=== PATIENT | female | born 1940 | race Caucasian/White ===

== ENCOUNTER 2020-10-06 15:29 | Inpatient (IN) | payer MEDICARE ==
[~2020-10-06 15:29] MED LIST: Bacitracin Zinc Ointment 30 gm TUBE ONE; Dexmedetomidine 200 MCG/2 ML VIAL ONE; Fentanyl 100 MCG/2 ML VIAL ONE; Lidocaine 0.5%/Epinephrine 1:200,000 50 ml Vial ONE; Thrombin 5000 UNITS/5 ML VIAL ONE; levETIRAcetam 1000 MG/100 ML PREMIX BAG ONE
[2020-10-06] MEDS ORDERED: Rocuronium Bromide 10 MG/ML (10ML VIAL) ONE (15:40)
[2020-10-06] MEDS ORDERED: PHENYLEPHRINE-NS 100 MCG/ML 10 ML SYRINGE ONE (15:40)
[2020-10-06] MEDS ORDERED: Metoprolol Tartrate 5 MG/5 ML VIAL IVP PRN (18:02)
[2020-10-06 18:34] VITALS: BMI 32.5
[2020-10-06] MEDS: niCARdipine 25 MG in Sodium Chloride 0.9% 250 ML 240 ML IVPB SCH (18:45)
[2020-10-06] MEDS ORDERED: Propofol 1,000 MG/100 ML VIAL IV ONE (20:30)
[2020-10-06] MEDS: Fentanyl 100 MCG/2 ML VIAL SLOW IVP PRN (21:04)
[2020-10-06] MEDS: levETIRAcetam in NS 500 MG in Premix Bag 1 BAG IVPB SCH (21:50)
[2020-10-06] MEDS: Sodium Chloride 0.9% 1,000 ML IV SCH (23:16)
[2020-10-06] MEDS: CEFAZOLIN 2 GM in Premix Bag 1 BAG IVPB SCH (23:17)
[2020-10-07] MEDS: niCARdipine 25 MG in Sodium Chloride 0.9% 250 ML 240 ML IVPB SCH (00:22)
[2020-10-07] MEDS: Fentanyl 100 MCG/2 ML VIAL SLOW IVP PRN ×2 (00:32→02:45)
[2020-10-07 03:33] LABS: #Lymphocytes 0.7 thou/uL (1.20-3.40); #Monocytes 0.2 thou/uL (0.11-0.59); %Eosinophils 0.2 % (0.0-10.0); %Lymphocytes 4.9 % (21.0-51.0); %Monocytes 1.6 % (0.0-10.0); %Neutrophils 93.3 % (42.0-75.0); Hemoglobin 12.8 g/dL (12.0-16.0); Mean Corpuscular HGB CONC 33.3 g/dL (32.0-36.0); Mean Corpuscular Hemoglobin 30.6 pg (27.0-31.0); Mean Corpuscular Volume 91.8 fL (78.0-98.0); Mean Platelet Volume 8.3 fL (7.4-10.4); Platelet Count 159 thou/uL (130-400); RBC Distribution Width 12.7 % (11.5-14.5); Red Blood Cell (RBC) Count 4.18 mill/uL (4.20-5.40); White Blood Cell (WBC) Count 13.9 thou/uL (4.8-10.8)
[2020-10-07 03:36] LABS: INR-International Normal Ratio 1.2; PTT 26.1 sec (22.9-36.1)
[2020-10-07 04:07] LABS: Anion Gap 14 mmol/L (10-20); Carbon Dioxide 21 mmol/L (23-31); Chloride 107 mmol/L (98-107); Potassium 3.5 mmol/L (3.5-5.1); Sodium 138 mmol/L (136-145)
[2020-10-07] MEDS: Propofol 1,000 MG/100 ML VIAL IV PRN ×3 (04:34→21:28)
[2020-10-07] MEDS: hydrALAZINE 20 MG/ML VIAL SLOW IVP PRN (05:16)
[2020-10-07] MEDS: Acetaminophen 500 MG TAB PO PRN ×2 (05:18→14:33)
[2020-10-07 07:13] LABS: Base Excess (BEa) -1.3 mEq/L (-2.0 to +3.0); CO2 Tension 32.8 mmHg (35.0-45.0); Carboxyhemoglobin (COHb) 0.2 gm% (0.0-3.0); Hemoglobin (Hb) 12.9 g/dL (12.0-16.0); O2 Tension (PaO2), arterial 92.8 mmHg (> 60.0); Potassium - ABG Lab 3.39 mmol/L (3.70-5.30); pH, Arterial 7.45 (7.35-7.45)
[2020-10-07 07:21] LABS: Puncture Site RRA
[2020-10-07] MEDS: niCARdipine 50 MG in Sodium Chloride 0.9% 250 ML 230 ML IVPB SCH ×2 (08:57→14:33)
[2020-10-07] MEDS: CEFAZOLIN 2 GM in Premix Bag 1 BAG IVPB SCH ×2 (08:57→15:08)
[2020-10-07] MEDS: Losartan 25 MG TAB PO SCH (08:58)
[2020-10-07] MEDS: Pantoprazole 40 MG VIAL IVP SCH (08:58)
[2020-10-07] MEDS: levETIRAcetam in NS 500 MG in Premix Bag 1 BAG IVPB SCH ×2 (08:58→21:44)
[2020-10-07] MEDS: Metoprolol Tartrate 50 MG TAB PO SCH ×2 (08:58→21:12)
[2020-10-07] MEDS: Sodium Chloride 0.9% 1,000 ML IV SCH (13:26)
[2020-10-07] MEDS ORDERED: Magnesium 2 GM/50 ML 2 GM in Premix Bag 1 BAG IVPB SCH ×2 (15:00→21:00)
[2020-10-07] MEDS ORDERED: Nitroglycerin 0.4 MG TAB (25 Tab Bottle) SL PRN (15:29)
[2020-10-07] MEDS ORDERED: Potassium Chloride 20 MEQ/100 ML PREMIX BAG IVPB SCH ×2 (15:30→21:00)
[2020-10-07] MEDS ORDERED: Electrolyte Replacement Protocol 1 EACH FS SCH (16:00)
[2020-10-07 16:56] LABS: Bilirubin Negative (Negative); Blood, Urine Negative (Negative); Clarity Clear (Clear); Glucose, Urine (Dipstick) Normal (Negative); Ketone, Urine Negative (Negative); Leukocyte Negative Leu/uL (Negative); Nitrite Negative (Negative); Protein, Urine (Dipstick) Negative (Neg-Trace); RBC/HPF 0-3 HPF (0-3); Specific Gravity, Urine 1.023 (1.002-1.036); Squamous Epithelial None Seen HPF (0-3); Urobilinogen Normal mg/dL (Less than 2); pH, Urine 5.5 (5.0-9.0)
[2020-10-07 16:58] LABS: Bacteria/HPF 1+ HPF (None Seen); Urine Culture Reflex Yes Yes
[2020-10-07 16:59] LABS: Phosphorus 3.5 mg/dL (2.3-4.7)
[2020-10-07] MEDS ORDERED: Potassium Bicarbonate/Cit Ac 20 MEQ TAB PER TUBE SCH (17:00)
[2020-10-07 17:02] LABS: Magnesium 1.8 mg/dL (1.6-2.6)
[2020-10-07] MEDS ORDERED: Potassium Chloride 20 MEQ in Premix Bag 1 BAG IVPB SCH (17:15)
[2020-10-07] MEDS ORDERED: Electrolyte Replacement Protocol FS PRN (17:15)
[2020-10-07] MEDS: VANCOMYCIN 1.25 GM/250 ML BAG 1.25 GM in Premix Bag 1 BAG IVPB SCH (17:58)
[2020-10-07] MEDS ORDERED: Acetaminophen 650 MG Suppository PR PRN (19:48)
[2020-10-07] MEDS ORDERED: Bisacodyl 10 MG SUPP PR PRN (19:48)
[2020-10-07] MEDS ORDERED: Acetaminophen 325 MG TAB PO PRN (19:48)
[2020-10-07] MEDS: MEROPENEM 1 GM/50 ML 1 GM in Premix Bag 1 BAG IVPB SCH (21:09)
[2020-10-07] MEDS: Artificial Tear Sol 15 ML BOT EA EYE SCH (21:11)
[2020-10-08] MEDS: niCARdipine 50 MG in Sodium Chloride 0.9% 250 ML 230 ML IVPB SCH ×2 (00:42→08:30)
[2020-10-08] MEDS: MEROPENEM 1 GM/50 ML 1 GM in Premix Bag 1 BAG IVPB SCH (04:16)
[2020-10-08] MEDS: Propofol 1,000 MG/100 ML VIAL IV PRN ×2 (04:17→17:16)
[2020-10-08 04:24] LABS: Hemoglobin 11.4 g/dL (12.0-16.0); Mean Corpuscular HGB CONC 32.2 g/dL (32.0-36.0); Mean Corpuscular Hemoglobin 29.9 pg (27.0-31.0); Mean Platelet Volume 8.4 fL (7.4-10.4); Platelet Count 171 thou/uL (130-400); Red Blood Cell (RBC) Count 3.82 mill/uL (4.20-5.40); White Blood Cell (WBC) Count 21.7 thou/uL (4.8-10.8)
[2020-10-08 04:27] LABS: Anion Gap 11 mmol/L (10-20); BUN (Urea Nitrogen) 18 mg/dL (9.8-20.1); Calc. Creatinine Clearance 84 mL/min (70-130); Calcium 7.9 mg/dL (7.8-10.44); Carbon Dioxide 21 mmol/L (23-31); Chloride 109 mmol/L (98-107); Glucose 142 mg/dL (83-110); Potassium 3.9 mmol/L (3.5-5.1); Sodium 137 mmol/L (136-145)
[2020-10-08 04:32] LABS: CRP (Inflammatory) 1.66 mg/dL (= or < 0.5); Magnesium 2.8 mg/dL (1.6-2.6)
[2020-10-08 04:50] LABS: Band 4 % (5-11); Lymphocytes 6 % (21-51); MDiff Complete? YES; Monocytes 7 % (0-10); Neutrophil 83 % (42-75)
[2020-10-08 06:59] LABS: Actual Bicarbonate (HCO3a) 21.3 mEq/L (22-28); Base Excess (BEa) -2.2 mEq/L (-2.0 to +3.0); CO2 Tension 32.4 mmHg (35.0-45.0); Calcium, Ionized (arterial) 1.13 mmol/L (1.12-1.30); Carboxyhemoglobin (COHb) 0.3 gm% (0.0-3.0); Hemoglobin (Hb) 12.1 g/dL (12.0-16.0); O2 Tension (PaO2), arterial 111.7 mmHg (> 60.0); Potassium - ABG Lab 4.11 mmol/L (3.70-5.30); pH, Arterial 7.44 (7.35-7.45)
[2020-10-08 07:01] LABS: Puncture Site Arterial Line
[2020-10-08] MEDS: Sodium Chloride 0.9% 1,000 ML IV SCH ×2 (07:11→15:15)
[2020-10-08] MEDS: Metoprolol Tartrate 50 MG TAB PO SCH ×2 (08:16→20:01)
[2020-10-08] MEDS: Pantoprazole 40 MG VIAL IVP SCH (08:16)
[2020-10-08] MEDS: levETIRAcetam in NS 500 MG in Premix Bag 1 BAG IVPB SCH ×2 (08:17→20:32)
[2020-10-08] MEDS: Losartan 25 MG TAB PO SCH (08:17)
[2020-10-08] MEDS: Artificial Tear Sol 15 ML BOT EA EYE SCH ×4 (08:18→20:31)
[2020-10-08] MEDS: Cefepime 1 GM in Sodium Chloride 0.9% 100 ML IVPB SCH ×2 (10:37→20:01)
[2020-10-08] MEDS: Acetaminophen 500 MG TAB PO PRN (11:35)
[2020-10-08] MEDS: Dexamethasone 4 mg/ml Vial SLOW IVP SCH ×2 (11:35→17:18)
[2020-10-08] MEDS: hydrALAZINE 20 MG/ML VIAL SLOW IVP PRN (13:17)
[2020-10-08] MEDS: VANCOMYCIN 1.25 GM/250 ML BAG 1.25 GM in Premix Bag 1 BAG IVPB SCH (18:34)
[2020-10-08] MEDS: Ipratropium Bromide 2.5 ml Neb NEB SCH (19:15)
[2020-10-08] MEDS: cloNIDine 0.2 MG TAB PO SCH (20:04)
[2020-10-08] MEDS: Fentanyl 100 MCG/2 ML VIAL SLOW IVP PRN ×2 (21:35→22:10)
[2020-10-09] MEDS: Dexamethasone 4 mg/ml Vial SLOW IVP SCH ×5 (00:30→23:19)
[2020-10-09] MEDS: Fentanyl 100 MCG/2 ML VIAL SLOW IVP PRN ×2 (00:35→23:30)
[2020-10-09] MEDS: Ipratropium Bromide 2.5 ml Neb NEB SCH ×4 (00:41→18:33)
[2020-10-09] MEDS: Propofol 1,000 MG/100 ML VIAL IV PRN ×3 (01:07→22:30)
[2020-10-09] MEDS: niCARdipine 50 MG in Sodium Chloride 0.9% 250 ML 230 ML IVPB SCH (06:28)
[2020-10-09 07:48] LABS: Hemoglobin 12.1 g/dL (12.0-16.0); Mean Corpuscular HGB CONC 33.2 g/dL (32.0-36.0); Mean Corpuscular Volume 93.5 fL (78.0-98.0); Mean Platelet Volume 8.3 fL (7.4-10.4); Platelet Count 154 thou/uL (130-400); RBC Distribution Width 12.8 % (11.5-14.5); Red Blood Cell (RBC) Count 3.91 mill/uL (4.20-5.40); White Blood Cell (WBC) Count 14.2 thou/uL (4.8-10.8)
[2020-10-09] MEDS: Sodium Chloride 0.9% 1,000 ML IV SCH ×2 (07:56→16:31)
[2020-10-09 08:04] LABS: Anion Gap 9 mmol/L (10-20); BUN (Urea Nitrogen) 21 mg/dL (9.8-20.1); Calc. Creatinine Clearance 92 mL/min (70-130); Calcium 8.3 mg/dL (7.8-10.44); Carbon Dioxide 25 mmol/L (23-31); Chloride 111 mmol/L (98-107); Glucose 141 mg/dL (83-110); Magnesium 2.4 mg/dL (1.6-2.6); Phosphorus 2.7 mg/dL (2.3-4.7); Potassium 4.1 mmol/L (3.5-5.1); Sodium 141 mmol/L (136-145)
[2020-10-09] MEDS: cloNIDine 0.2 MG TAB PO SCH ×2 (08:11→21:07)
[2020-10-09] MEDS: Losartan 25 MG TAB PO SCH (08:11)
[2020-10-09] MEDS: Metoprolol Tartrate 50 MG TAB PO SCH ×2 (08:11→21:07)
[2020-10-09] MEDS: Pantoprazole 40 MG VIAL IVP SCH (08:11)
[2020-10-09] MEDS: Artificial Tear Sol 15 ML BOT EA EYE SCH ×4 (08:12→21:07)
[2020-10-09] MEDS: Cefepime 1 GM in Sodium Chloride 0.9% 100 ML IVPB SCH ×2 (08:12→21:07)
[2020-10-09] MEDS: levETIRAcetam in NS 500 MG in Premix Bag 1 BAG IVPB SCH ×2 (08:12→21:07)
[2020-10-09 08:23] LABS: Band 1 % (5-11); Lymphocytes 11 % (21-51); MDiff Complete? YES; Neutrophil 88 % (42-75); RBC Morphology Normal
[2020-10-09] MEDS ORDERED: Magnevist 469MG/ML 20 ML VIAL ONE (14:57)
[2020-10-09] MEDS ORDERED: Iopamidol 370 76% 100 ML VIAL ONE (14:57)
[2020-10-09] MEDS: VANCOMYCIN 1.25 GM/250 ML BAG 1.25 GM in Premix Bag 1 BAG IVPB SCH (17:15)
[2020-10-09 17:35] LABS: Vancomycin, Trough 6.8 ug/mL
[2020-10-10] MEDS: Ipratropium Bromide 2.5 ml Neb NEB SCH ×4 (02:19→18:55)
[2020-10-10] MEDS: Dexamethasone 4 mg/ml Vial SLOW IVP SCH ×2 (05:28→09:58)
[2020-10-10 06:36] LABS: Anion Gap 12 mmol/L (10-20); BUN (Urea Nitrogen) 23 mg/dL (9.8-20.1); Calc. Creatinine Clearance 104 mL/min (70-130); Calcium 8.1 mg/dL (7.8-10.44); Carbon Dioxide 18 mmol/L (23-31); Chloride 114 mmol/L (98-107); Glucose 136 mg/dL (83-110); Potassium 4.5 mmol/L (3.5-5.1); Sodium 139 mmol/L (136-145)
[2020-10-10 06:58] LABS: #Lymphocytes 0.8 thou/uL (1.20-3.40); #Monocytes 0.4 thou/uL (0.11-0.59); #Neutrophils 13.6 thou/uL (1.40-6.50); %Lymphocytes 5.3 % (21.0-51.0); %Monocytes 2.5 % (0.0-10.0); %Neutrophils 92.1 % (42.0-75.0); Hemoglobin 12.1 g/dL (12.0-16.0); Mean Corpuscular HGB CONC 32.8 g/dL (32.0-36.0); Mean Corpuscular Hemoglobin 30.6 pg (27.0-31.0); Mean Corpuscular Volume 93.3 fL (78.0-98.0); Mean Platelet Volume 8.4 fL (7.4-10.4); Platelet Count 158 thou/uL (130-400); RBC Distribution Width 12.8 % (11.5-14.5); Red Blood Cell (RBC) Count 3.96 mill/uL (4.20-5.40); White Blood Cell (WBC) Count 14.7 thou/uL (4.8-10.8)
[2020-10-10] MEDS: Sodium Chloride 0.9% 1,000 ML IV SCH ×2 (07:00→20:07)
[2020-10-10] MEDS: Propofol 1,000 MG/100 ML VIAL IV PRN ×2 (07:04→14:48)
[2020-10-10] MEDS: cloNIDine 0.2 MG TAB PO SCH ×2 (08:27→20:11)
[2020-10-10] MEDS: Metoprolol Tartrate 50 MG TAB PO SCH ×2 (08:27→20:11)
[2020-10-10] MEDS: Pantoprazole 40 MG VIAL IVP SCH (08:27)
[2020-10-10] MEDS: Cefepime 1 GM in Sodium Chloride 0.9% 100 ML IVPB SCH ×2 (08:27→20:09)
[2020-10-10] MEDS: Losartan 25 MG TAB PO SCH (08:27)
[2020-10-10] MEDS: Artificial Tear Sol 15 ML BOT EA EYE SCH ×4 (08:28→20:13)
[2020-10-10] MEDS: levETIRAcetam in NS 500 MG in Premix Bag 1 BAG IVPB SCH ×2 (08:28→20:09)
[2020-10-10] MEDS ORDERED: Vancomycin 1.5 GRAM/300 ML BAG 1.5 GM in Premix Bag 1 BAG IVPB SCH (10:00)
[2020-10-10] MEDS ORDERED: Dexamethasone 4 mg/ml Vial ONE (20:02)
[2020-10-11] MEDS: Ipratropium Bromide 2.5 ml Neb NEB SCH ×5 (00:24→23:21)
[2020-10-11] MEDS: Dexamethasone 4 mg/ml Vial SLOW IVP SCH ×3 (00:47→20:22)
[2020-10-11 04:02] LABS: Anion Gap 12 mmol/L (10-20); BUN (Urea Nitrogen) 26 mg/dL (9.8-20.1); Calc. Creatinine Clearance 108 mL/min (70-130); Calcium 7.7 mg/dL (7.8-10.44); Carbon Dioxide 20 mmol/L (23-31); Chloride 110 mmol/L (98-107); Glucose 141 mg/dL (83-110); Potassium 3.7 mmol/L (3.5-5.1); Sodium 138 mmol/L (136-145)
[2020-10-11] MEDS: Propofol 1,000 MG/100 ML VIAL IV PRN ×3 (04:26→17:24)
[2020-10-11 05:28] LABS: #Lymphocytes 0.8 thou/uL (1.20-3.40); #Monocytes 0.3 thou/uL (0.11-0.59); %Eosinophils 0.3 % (0.0-10.0); %Lymphocytes 8.3 % (21.0-51.0); %Monocytes 3.3 % (0.0-10.0); %Neutrophils 88.1 % (42.0-75.0); Hemoglobin 11.3 g/dL (12.0-16.0); Mean Corpuscular HGB CONC 33.6 g/dL (32.0-36.0); Mean Corpuscular Hemoglobin 31.2 pg (27.0-31.0); Mean Corpuscular Volume 92.8 fL (78.0-98.0); Mean Platelet Volume 8.6 fL (7.4-10.4); Platelet Count 126 thou/uL (130-400); RBC Distribution Width 12.6 % (11.5-14.5); Red Blood Cell (RBC) Count 3.64 mill/uL (4.20-5.40); White Blood Cell (WBC) Count 9.1 thou/uL (4.8-10.8)
[2020-10-11] MEDS ORDERED: Ventilator Sedation Protocol 1 EACH FS SCH (09:00)
[2020-10-11] MEDS ORDERED: Fentanyl BOLUS 250 ML IVPB PRN (09:15)
[2020-10-11] MEDS ORDERED: Propofol BOLUS 1,000 MG/100 ML VIAL IV PRN (09:15)
[2020-10-11] MEDS ORDERED: fentaNYL Citrate/PF 2,000 MCG in Sodium Chloride 0.9% 60 ML IV SCH (09:15)
[2020-10-11] MEDS ORDERED: Morphine 2 MG/ML VIAL SLOW IVP PRN (09:15)
[2020-10-11] MEDS ORDERED: Lorazepam 2 MG/ML VIAL SLOW IVP PRN (09:15)
[2020-10-11] MEDS ORDERED: DISCONTINUE PREVIOUS NARCOTIC PAIN MEDICATIONS AND BENZODIAZEPINES FS SCH (09:15)
[2020-10-11] MEDS: levETIRAcetam in NS 500 MG in Premix Bag 1 BAG IVPB SCH ×2 (09:31→20:21)
[2020-10-11] MEDS: cloNIDine 0.2 MG TAB PO SCH ×2 (09:33→20:22)
[2020-10-11] MEDS: Losartan 25 MG TAB PO SCH (09:33)
[2020-10-11] MEDS: Cefepime 1 GM in Sodium Chloride 0.9% 100 ML IVPB SCH ×2 (09:34→20:21)
[2020-10-11] MEDS: Metoprolol Tartrate 50 MG TAB PO SCH ×2 (09:34→20:22)
[2020-10-11] MEDS: Pantoprazole 40 MG VIAL IVP SCH (09:36)
[2020-10-11] MEDS: Artificial Tear Sol 15 ML BOT EA EYE SCH ×4 (10:12→20:23)
[2020-10-11] MEDS: Sodium Chloride 0.9% 1,000 ML IV SCH (12:30)
[2020-10-11] MEDS: Fentanyl CADD 100 ML IV SCH (14:48)
[2020-10-12] MEDS: Sodium Chloride 0.9% 1,000 ML IV SCH ×2 (02:00→15:39)
[2020-10-12 04:04] LABS: BUN (Urea Nitrogen) 31 mg/dL (9.8-20.1); Calc. Creatinine Clearance 104 mL/min (70-130); Calcium 7.8 mg/dL (7.8-10.44); Carbon Dioxide 20 mmol/L (23-31); Chloride 110 mmol/L (98-107); Glucose 122 mg/dL (83-110); Sodium 139 mmol/L (136-145)
[2020-10-12 04:15] LABS: Anion Gap 13 mmol/L (10-20)
[2020-10-12 06:39] LABS: #Basophils 0.2 thou/uL (0.0-0.2); #Lymphocytes 0.8 thou/uL (1.20-3.40); #Monocytes 0.8 thou/uL (0.11-0.59); #Neutrophils 7.7 thou/uL (1.40-6.50); %Basophils 1.6 % (0.0-1.0); %Eosinophils 0.5 % (0.0-10.0); %Lymphocytes 8.2 % (21.0-51.0); %Monocytes 8.3 % (0.0-10.0); %Neutrophils 81.4 % (42.0-75.0); Hemoglobin 12.5 g/dL (12.0-16.0); Mean Corpuscular HGB CONC 32.5 g/dL (32.0-36.0); Mean Corpuscular Hemoglobin 29.8 pg (27.0-31.0); Mean Corpuscular Volume 91.6 fL (78.0-98.0); Mean Platelet Volume 9.5 fL (7.4-10.4); Platelet Count 102 thou/uL (130-400); RBC Distribution Width 12.8 % (11.5-14.5); White Blood Cell (WBC) Count 9.5 thou/uL (4.8-10.8)
[2020-10-12] MEDS: Propofol 1,000 MG/100 ML VIAL IV PRN ×3 (06:45→22:05)
[2020-10-12 07:15] LABS: Actual Bicarbonate (HCO3a) 23.8 mEq/L (22-28); Base Excess (BEa) -0.1 mEq/L (-2.0 to +3.0); CO2 Tension 36.3 mmHg (35.0-45.0); Carboxyhemoglobin (COHb) 0.2 gm% (0.0-3.0); Hemoglobin (Hb) 11.9 g/dL (12.0-16.0); O2 Tension (PaO2), arterial 65.6 mmHg (> 60.0); Potassium - ABG Lab 3.65 mmol/L (3.70-5.30); pH, Arterial 7.44 (7.35-7.45)
[2020-10-12 07:16] LABS: ALV-art Gradient 138.575 mmHg (0-20); Puncture Site RRA
[2020-10-12] MEDS: Ipratropium Bromide 2.5 ml Neb NEB SCH ×3 (07:44→18:15)
[2020-10-12] MEDS: Cefepime 1 GM in Sodium Chloride 0.9% 100 ML IVPB SCH ×2 (09:18→21:03)
[2020-10-12] MEDS: cloNIDine 0.2 MG TAB PO SCH ×2 (09:19→21:03)
[2020-10-12] MEDS: Pantoprazole 40 MG VIAL IVP SCH (09:20)
[2020-10-12] MEDS: Losartan 25 MG TAB PO SCH (09:20)
[2020-10-12] MEDS: Metoprolol Tartrate 50 MG TAB PO SCH ×2 (09:20→21:03)
[2020-10-12] MEDS: Dexamethasone 4 mg/ml Vial SLOW IVP SCH ×2 (09:20→21:03)
[2020-10-12] MEDS: Artificial Tear Sol 15 ML BOT EA EYE SCH ×4 (09:21→21:04)
[2020-10-12] MEDS: levETIRAcetam in NS 500 MG in Premix Bag 1 BAG IVPB SCH ×2 (09:25→21:01)
[2020-10-12] MEDS: Fentanyl CADD 100 ML IV SCH (16:28)
[2020-10-13] MEDS: Ipratropium Bromide 2.5 ml Neb NEB SCH ×3 (00:07→16:42)
[2020-10-13] MEDS: hydrALAZINE 20 MG/ML VIAL SLOW IVP PRN (02:44)
[2020-10-13] MEDS: Sodium Chloride 0.9% 1,000 ML IV SCH ×2 (02:52→16:17)
[2020-10-13 04:19] LABS: #Eosinphils 0.1 thou/uL (0.0-0.7); #Lymphocytes 0.6 thou/uL (1.20-3.40); #Monocytes 0.6 thou/uL (0.11-0.59); #Neutrophils 10.8 thou/uL (1.40-6.50); %Eosinophils 0.6 % (0.0-10.0); %Lymphocytes 5.1 % (21.0-51.0); %Monocytes 4.5 % (0.0-10.0); %Neutrophils 89.7 % (42.0-75.0); Hemoglobin 12.4 g/dL (12.0-16.0); Mean Corpuscular HGB CONC 34.2 g/dL (32.0-36.0); Mean Corpuscular Hemoglobin 31.4 pg (27.0-31.0); Mean Platelet Volume 9.7 fL (7.4-10.4); Platelet Count 113 thou/uL (130-400); RBC Distribution Width 12.7 % (11.5-14.5); Red Blood Cell (RBC) Count 3.95 mill/uL (4.20-5.40); White Blood Cell (WBC) Count 12.1 thou/uL (4.8-10.8)
[2020-10-13 04:33] LABS: Anion Gap 12 mmol/L (10-20); BUN (Urea Nitrogen) 33 mg/dL (9.8-20.1); Calc. Creatinine Clearance 102 mL/min (70-130); Calcium 7.6 mg/dL (7.8-10.44); Carbon Dioxide 21 mmol/L (23-31); Chloride 111 mmol/L (98-107); Glucose 107 mg/dL (83-110); Potassium 4.1 mmol/L (3.5-5.1); Sodium 140 mmol/L (136-145)
[2020-10-13] MEDS: Cefepime 1 GM in Sodium Chloride 0.9% 100 ML IVPB SCH (11:04)
[2020-10-13] MEDS: Artificial Tear Sol 15 ML BOT EA EYE SCH ×3 (11:04→18:51)
[2020-10-13] MEDS: cloNIDine 0.2 MG TAB PO SCH (11:04)
[2020-10-13] MEDS: Dexamethasone 4 mg/ml Vial SLOW IVP SCH (11:05)
[2020-10-13] MEDS: Metoprolol Tartrate 50 MG TAB PO SCH (11:05)
[2020-10-13] MEDS: Losartan 25 MG TAB PO SCH (11:05)
[2020-10-13] MEDS: levETIRAcetam in NS 500 MG in Premix Bag 1 BAG IVPB SCH (11:05)
[2020-10-13] MEDS: Pantoprazole 40 MG VIAL IVP SCH (11:05)
[2020-10-13] MEDS ORDERED: Fentanyl 100 MCG/2 ML VIAL ONE (11:49)
[2020-10-13] MEDS: Lorazepam 2 MG/ML VIAL SLOW IVP PRN ×3 (11:58→16:34)
[2020-10-13] MEDS ORDERED: Atropine Sulfate 1% Ophth Soln 5 ml Bottle PO PRN (12:10)
[2020-10-13] MEDS: Fentanyl 100 MCG/2 ML VIAL SLOW IVP PRN ×3 (13:25→21:03)
[2020-10-13] MEDS ORDERED: Scopolamine 1.5 mg/72 hour Patch TD SCH (20:00)
[2020-10-13] MEDS ORDERED: Sodium Chloride 0.45% 500 ML IV SCH (20:30)
[2020-10-13] MEDS ORDERED: Metoprolol Tartrate 5 MG/5 ML VIAL IVP SCH (20:30)
[2020-10-14] MEDS: Fentanyl 100 MCG/2 ML VIAL SLOW IVP PRN ×3 (02:13→20:27)
[2020-10-15] MEDS ORDERED: diphenhydrAMINE 50 MG/ML VIAL IVP PRN (09:54)
[2020-10-15] MEDS ORDERED: hydrALAZINE 20 MG/ML VIAL SLOW IVP PRN (09:54)
[2020-10-15] MEDS ORDERED: Ondansetron PF 4 MG/2 ML Vial IVP PRN (09:54)
[2020-10-15] MEDS ORDERED: Bisacodyl 10 MG SUPP PR PRN (09:54)
[2020-10-15] MEDS ORDERED: Sodium Chloride 0.65% Nasal 44 ML BOT EA NARE PRN (09:54)
[2020-10-15] MEDS ORDERED: Acetaminophen 650 MG Suppository PR PRN (09:54)
[2020-10-15] MEDS ORDERED: Artificial Tear Sol 15 ML BOT EA EYE PRN (09:55)
[2020-10-15] MEDS ORDERED: Dextrose 5 % And 0.9 % NaCl 1,000 ML IV SCH (10:00)
[2020-10-15] MEDS: Labetalol HCl 100 MG/20 ML VIAL SLOW IVP PRN ×2 (13:09→17:48)
[2020-10-15] MEDS: Lorazepam 2 MG/ML VIAL SLOW IVP PRN (20:19)
[2020-10-15] MEDS: Fentanyl 100 MCG/2 ML VIAL SLOW IVP PRN (20:19)
[2020-10-16] MEDS: Lorazepam 2 MG/ML VIAL SLOW IVP PRN ×3 (00:43→15:55)
[2020-10-16] MEDS: Fentanyl 100 MCG/2 ML VIAL SLOW IVP PRN ×6 (00:43→16:29)
[2020-10-16] MEDS: Labetalol HCl 100 MG/20 ML VIAL SLOW IVP PRN ×3 (04:36→13:38)
[2020-10-16 08:26] VITALS: TEMP 100.2
[2020-10-16 15:47] VITALS: BP 203/88
[2020-10-16 23:30] LABS: SARS-CoV-2 PCR by NAA Not Detected (NotDetected)
== END 2020-10-16 19:26 | disposition hospice, inpatient (51) | DRG 23 ==
LOC: SDC 15:29 → CCU 18:15 → ONC 10-13 19:34
PROVIDERS: ADMIT Surgery; ATTEND Internal Medicine
PROC: 00C70ZZ Extirpation of Matter from Cerebral Hemisphere, Open Approach (ICD-10-PCS; principal; 2020-10-06)
PROC: 5A1955Z Respiratory Ventilation, Greater than 96 Consecutive Hours (ICD-10-PCS; 2020-10-06)
DX: I61.5 Nontraumatic intracerebral hemorrhage, intraventricular (principal); G93.6 Cerebral edema; G93.5 Compression of brain; J96.01 Acute respiratory failure with hypoxia; A41.9 Sepsis, unspecified organism; J69.0 Pneumonitis due to inhalation of food and vomit; G81.94 Hemiplegia, unspecified affecting left nondominant side; I47.1 Supraventricular tachycardia; I16.1 Hypertensive emergency; E87.2 Acidosis; G93.40 Encephalopathy, unspecified; I60.9 Nontraumatic subarachnoid hemorrhage, unspecified; R40.20 Unspecified coma; Z66 Do not resuscitate; Z51.5 Encounter for palliative care; Z20.822 Contact with and (suspected) exposure to COVID-19; R29.810 Facial weakness; I10 Essential (primary) hypertension; M19.90 Unspecified osteoarthritis, unspecified site; F03.90 Unspecified dementia, unspecified severity, without behavioral disturbance, psychotic disturbance, mood disturbance, and anxiety; I25.10 Atherosclerotic heart disease of native coronary artery without angina pectoris; R29.721 NIHSS score 21; E87.6 Hypokalemia; E83.42 Hypomagnesemia; E78.5 Hyperlipidemia, unspecified; G43.909 Migraine, unspecified, not intractable, without status migrainosus; E66.9 Obesity, unspecified; J30.2 Other seasonal allergic rhinitis; Z88.1 Allergy status to other antibiotic agents; Z88.5 Allergy status to narcotic agent; Z88.2 Allergy status to sulfonamides; Z88.8 Allergy status to other drugs, medicaments and biological substances; Z90.710 Acquired absence of both cervix and uterus; Z85.3 Personal history of malignant neoplasm of breast; Z79.899 Other long term (current) drug therapy; Z87.891 Personal history of nicotine dependence; Z95.5 Presence of coronary angioplasty implant and graft; Z68.32 Body mass index [BMI] 32.0-32.9, adult; Z90.11 Acquired absence of right breast and nipple; Z80.3 Family history of malignant neoplasm of breast
CPT/HCPCS: 36415; 36416; 36600; 70450; 70496; 70553; 71045; 80048; 80051; 80202; 81001; 82565; 82805; 83735; 84100; 85025; 85610; 85730; 86140; 87086; 87635; 88304; 93005; 93010; 93306; 93970; 94002; 94003; 94640; 94760; A9579; C1713; C9113; J0360; J0690; J0692; J1100; J1953; J2001; J2060; J2185; J2704; J3010; J3370; J3475; J3480; J3490; J7050; P9045; Q9967; U0003; U0005

== ENCOUNTER 2020-10-16 19:37 | Inpatient (IN) | payer OTHER ==
[2020-10-16] MEDS ORDERED: Fentanyl 100 MCG/2 ML VIAL SLOW IVP PRN (20:02)
[2020-10-16] MEDS ORDERED: Lorazepam 2 MG/ML VIAL SLOW IVP PRN (20:04)
[2020-10-16] MEDS ORDERED: Bisacodyl 10 MG SUPP PR PRN (20:05)
[2020-10-16] MEDS ORDERED: Scopolamine 1.5 mg/72 hour Patch TOP PRN (20:15)
[2020-10-16] MEDS ORDERED: Ondansetron PF 4 MG/2 ML Vial IVP PRN (20:15)
[2020-10-16] MEDS: Fentanyl 100 MCG/2 ML VIAL SLOW IVP PRN ×2 (21:13→23:14)
[2020-10-16] MEDS: Lorazepam 2 MG/ML VIAL SLOW IVP SCH (21:13)
[2020-10-16] MEDS: Fentanyl 100 MCG/2 ML VIAL SLOW IVP SCH (23:49)
[2020-10-17] MEDS: Fentanyl 100 MCG/2 ML VIAL SLOW IVP SCH ×12 (01:16→23:36)
[2020-10-17] MEDS: Lorazepam 2 MG/ML VIAL SLOW IVP SCH ×6 (01:16→21:22)
[2020-10-18] MEDS: Lorazepam 2 MG/ML VIAL SLOW IVP SCH ×6 (01:46→20:03)
[2020-10-18] MEDS: Fentanyl 100 MCG/2 ML VIAL SLOW IVP SCH ×12 (01:46→23:57)
[2020-10-19] MEDS: Lorazepam 2 MG/ML VIAL SLOW IVP SCH ×6 (00:01→21:14)
[2020-10-19] MEDS: Fentanyl 100 MCG/2 ML VIAL SLOW IVP SCH ×12 (02:03→23:28)
[2020-10-20] MEDS: Lorazepam 2 MG/ML VIAL SLOW IVP SCH ×4 (01:50→12:51)
[2020-10-20] MEDS: Fentanyl 100 MCG/2 ML VIAL SLOW IVP SCH ×7 (01:50→17:01)
[2020-10-20 07:34] VITALS: BP 185/82; TEMP 97.8
[2020-10-20] MEDS ORDERED: Lorazepam 1 MG TAB PO PRN (09:11)
[2020-10-20] MEDS ORDERED: fentaNYL 100 mcg/hour Patch TD SCH (11:00)
== END 2020-10-20 17:45 | disposition hospice, home (50) | DRG 951 ==
LOC: ONC 19:37
PROVIDERS: ADMIT Family Medicine; ATTEND Family Medicine
DX: Z51.5 Encounter for palliative care (principal); I61.9 Nontraumatic intracerebral hemorrhage, unspecified; J69.0 Pneumonitis due to inhalation of food and vomit; J96.91 Respiratory failure, unspecified with hypoxia; I16.1 Hypertensive emergency; I47.1 Supraventricular tachycardia; Z66 Do not resuscitate; I25.10 Atherosclerotic heart disease of native coronary artery without angina pectoris; I10 Essential (primary) hypertension; G43.909 Migraine, unspecified, not intractable, without status migrainosus; E87.6 Hypokalemia; E83.42 Hypomagnesemia; Z79.82 Long term (current) use of aspirin; Z79.899 Other long term (current) drug therapy; Z88.5 Allergy status to narcotic agent; Z88.2 Allergy status to sulfonamides; Z88.8 Allergy status to other drugs, medicaments and biological substances; Z95.5 Presence of coronary angioplasty implant and graft; Z98.42 Cataract extraction status, left eye; Z98.41 Cataract extraction status, right eye; Z90.710 Acquired absence of both cervix and uterus; Z90.721 Acquired absence of ovaries, unilateral; Z87.891 Personal history of nicotine dependence; Z80.3 Family history of malignant neoplasm of breast; Z82.5 Family history of asthma and other chronic lower respiratory diseases
CPT/HCPCS: J2060; J3010